=== PATIENT | male | born 1970 | race Asian ===

== ENCOUNTER 2019-12-16 06:29 | Day surgery (SDC) | payer OTHER, SELFPAY ==
[~2019-12-16] VITALS: Ht 157.5 cm; Wt 68.9 kg
[2019-12-16] MEDS ORDERED: fentaNYL citrate 0.05 MG/ML VIAL ONE (08:07)
[2019-12-16] MEDS ORDERED: LIDOCAINE 2% 100 MG/5 ML UJET TP ONE ×2 (08:08→15:20)
[2019-12-16] MEDS ORDERED: MIDAZOLAM 2 MG/2 ML VIAL ONE (08:08)
[2019-12-16] MEDS ORDERED: MIDAZOLAM 2 MG/2 ML VIAL IVP ONE ×2 (13:05→15:00)
[2019-12-16] MEDS ORDERED: fentaNYL citrate 0.05 MG/ML VIAL IVP ONE (13:05)
[2019-12-16] MEDS ORDERED: GLUCAGON 1 MG VIAL ONE (17:50)
== END 2019-12-16 10:40 | disposition home or self-care (01) ==
LOC: MMU 06:29 → MDS 06:29
PROVIDERS: ATTEND Internal Medicine Gastroenterology
DX: Z12.11 Encounter for screening for malignant neoplasm of colon (principal); D12.2 Benign neoplasm of ascending colon; K21.9 Gastro-esophageal reflux disease without esophagitis; Z80.0 Family history of malignant neoplasm of digestive organs; E78.00 Pure hypercholesterolemia, unspecified; Z79.899 Other long term (current) drug therapy; Z20.828 Contact with and (suspected) exposure to other viral communicable diseases
CPT/HCPCS: 45385; 88305; J1610; J2250; J3010; U0003